=== PATIENT | female | born 1990 | race Two or more races ===

== ENCOUNTER 2019-01-06 19:40 | Emergency (ER) | payer SELFPAY ==
[~2019-01-06] VITALS: Ht 175.3 cm; Wt 135.0 kg
[2019-01-06] MEDS ORDERED: FLUO-123 MT (20:04)
[2019-01-06] MEDS ORDERED: ALPR-392 PO (20:04)
[2019-01-06] MEDS ORDERED: GABA-529 MT (20:04)
[2019-01-06] MEDS ORDERED: CLON0.122 MT (20:05)
[2019-01-06] MEDS ORDERED: ALBU4TAB6 MT (20:05)
[2019-01-07 00:20] LABS: BASOPHILS % 0.5 % (0.0-2.0); CHLORIDE 108 mEq/L (98-107); HEMATOCRIT. 37.1 % (36.0-48.0); HEMOGLOBIN. 12.7 g/dL (12.0-16.0); LYMPHOCYTES % 19.7 % (20.0-50.0); MEAN CORPUSCULAR HEMOGLOBIN 31.1 pg (28.0-32.0); MEAN CORPUSCULAR VOLUME 90.9 fL (81.0-99.0); MEAN PLATELET VOLUME 6.9 fl (7.4-10.4); MONOCYTES % 12.3 % (2.0-8.0); NEUTROPHILS % 66.5 % (40.0-76.0); PLATELET 311 x1000/uL (130-400); RED BLOOD CELL COUNT 4.09 mill/uL (4.2-5.4); RED CELL DISTRIBUTION WIDTH 12.9 % (11.6-14.6)
[2019-01-07 00:25] LABS: ETHANOL BLOOD 127 mg/dL
[2019-01-07 00:48] LABS: CLARITY URINE CLEAR (CLEAR); COLOR URINE YELLOW (YELLOW); KETONES URINE TRACE (NEGATIVE); LEUKOCYTE ESTERASE URINE NEGATIVE (NEGATIVE); NITRITE URINE NEGATIVE (NEGATIVE); OCCULT BLOOD URINE NEGATIVE (NEGATIVE); PROTEIN URINE NEGATIVE (NEGATIVE); SPECIFIC GRAVITY URINE 1.022 (1.005-1.030); UROBILINOGEN URINE 0.2 E.U./dL (0.2-1.0)
[2019-01-07 01:05] LABS: *AMPHETAMINES SCREEN URINE NEGATIVE (NEGATIVE); *COCAINE SCREEN URINE NEGATIVE (NEGATIVE); METHADONE URINE SCREEN NEGATIVE (NEGATIVE)
[2019-01-07 01:06] LABS: PHENCYCLIDINE URINE SCREEN NEGATIVE (NEGATIVE)
[2019-01-07 01:08] LABS: OPIATES URINE SCREEN NEGATIVE (NEGATIVE)
[2019-01-07 01:09] LABS: *BARBITURATES SCREEN URINE NEGATIVE (NEGATIVE)
[2019-01-07 01:19] LABS: *BENZODIAZEPINES SCREEN URINE PRESUMTIVE POSITIVE (NEGATIVE); CANNABINOID URINE SCREEN PRESUMTIVE POSITIVE (NEGATIVE)
[2019-01-07 11:20] VITALS: BP 112/84
== END 2019-01-07 11:20 | disposition home or self-care (01) ==
LOC: ER 19:40
DX: T42.6X2A Poisoning by other antiepileptic and sedative-hypnotic drugs, intentional self-harm, initial encounter (principal); F19.10 Other psychoactive substance abuse, uncomplicated; F10.129 Alcohol abuse with intoxication, unspecified; Y90.6 Blood alcohol level of 120-199 mg/100 ml; F12.90 Cannabis use, unspecified, uncomplicated; Y92.520 Airport as the place of occurrence of the external cause
CPT/HCPCS: 36415; 80305; 80307; 80320; 80329; 81003; 81025; 99284; G0480